=== PATIENT | male | born 2000 | race Caucasian/White ===

== ENCOUNTER 2022-03-06 11:13 | Emergency (ER) | payer BC ==
[~2022-03-06] VITALS: Ht 177.8 cm; Wt 75.3 kg
--- NOTE | 2022-03-06 11:40 | NUR ---
Patient ambulatory,alert and orientedx4 accompanied by mother with complaints of nausea/vomiting and diarrhea for 2 days, mid abdominal pain 4/. Pt not in distress.
--- NOTE | 2022-03-06 11:45 | NUR ---
MD at bedside, medical screening exam in progress.
[2022-03-06] MEDS ORDERED: ONDANSETRON 4 MG/2 ML VIAL ONE (11:51)
[2022-03-06] MEDS ORDERED: FAMOTIDINE. 20 MG/2 ML VIAL IV ONE ×2 (11:52→12:00)
[2022-03-06] MEDS ORDERED: IV NORMAL SALINE 1000 ML BAG IV ONE (12:00)
[2022-03-06] MEDS ORDERED: ONDANSETRON 4 MG/2 ML VIAL IV ONE (12:00)
[2022-03-06 12:12] LABS: HEMATOCRIT 47.3 % (36.7-47.1); PLATELET COUNT (AUTO) 327 K/uL (152-348)
[2022-03-06 12:23] LABS: CREATININE 1.2 mg/dL (0.6-1.3); POTASSIUM 4.4 mmol/L (3.5-5.1)
[2022-03-06 12:29] LABS: BILIRUBIN,DIRECT 0.3 mg/dL (0.0-0.2); TOTAL PROTEIN, SERUM 8.1 g/dL (6.4-8.2)
[2022-03-06] MEDS ORDERED: OMEP20CA15 PO (12:41)
[2022-03-06] MEDS ORDERED: ONDA4TAB11 PO (12:41)
--- NOTE | 2022-03-06 13:10 | NUR ---
Patient discharged to home in stable condition. Written and verbal after care instructions given to pt and mother. Patient verbalizes understanding of instructions. Stressed follow up or return to ER for worsening s/s. IV site removed aseptically.
[2022-03-06 13:11] VITALS: BP 125/70
== END 2022-03-06 13:11 | disposition home or self-care (01) ==
LOC: ER 11:13
DX: R11.2 Nausea with vomiting, unspecified (principal); R10.10 Upper abdominal pain, unspecified
CPT/HCPCS: 36415; 76700; 80048; 80076; 83690; 85025; 96361; 96374; 96375; 99284; J2405; J3490; J7040; A4663